=== PATIENT | female | born 1990 | race American Indian/Alaskan Native ===

== ENCOUNTER 2019-08-01 07:32 | Emergency (ER) | payer MEDICAID ==
[2019-08-01 08:04] VITALS: BP 112/81
[2019-08-01] MEDS ORDERED: ZOFRAN ODT PO ONE (08:45)
[2019-08-01 09:12] LABS: Basophils % (Auto) 0.5 % (0.0-1.8); Eosinophils # (Auto) 0.1 K/mm3 (0.0-0.4); Eosinophils % (Auto) 2.3 % (0.0-4.3); Hematocrit 35.1 % (30.3-42.9); Hemoglobin 11.4 gm/dl (10.1-14.3); Lymphocytes # (Auto) 1.9 K/mm3 (1.2-5.4); Lymphocytes % (Auto) 32.9 % (13.4-35.0); Mean Corpuscular HGB Conc 33 % (30-34); Mean Corpuscular Volume 77 fl (79-97); Monocytes # (Auto) 0.4 K/mm3 (0.0-0.8); Monocytes % (Auto) 7.7 % (0.0-7.3); Platelet Count 239 K/mm3 (140-440); Red Blood Count 4.55 M/mm3 (3.65-5.03); Red Cell Distribution Width 17.9 % (13.2-15.2)
--- NOTE | 2019-08-01 09:16 | Emergency Department Report ---
HPI - General Chief Complaint: Nausea/Vomiting/Diarrhea Time Seen by Provider: 08/01/19 08:34 - HPI HPI: 29-year-old -[place] female presents to the emergency department with a complaint of lower abdominal discomfort, nausea, vomiting and diarrhea. The patient says that she had a stomachache about one week ago that lasted for a few days and then resolved. Symptoms started last night but she had to go to work and she says that by this morning the symptoms had worsened. She has not taken anything for her symptoms prior to presentation. No recent travel or sick contacts at home. No past medical history. She has a primary care physician b ut cannot currently remember their name at this time. She denies any vaginal bleeding, discharge or dysuria. ED Past Medical Hx - Past Medical History Hx Hypertension: No Hx Heart Attack/AMI: No Hx Congestive Heart Failure: No Hx Diabetes: No Hx Deep Vein Thrombosis: No Hx Renal Disease: No Hx Sickle Cell Disease: No Hx Seizures: No Hx Asthma: No Hx COPD: No Hx HIV: No - Surgical History Past Surgical History?: No - Social History Smoking Status: Current Every Day Smoker Substance Use Type: None - Medications Home Medications: Home Medications Medication Instructions Recorded Confirmed Last Taken Type Ferrous Fumarate (Nf) 324 mg PO BID #60 tablet 11/23/14 Unknown Rx [Hemocyte(Nf)] Ibuprofen [Motrin 600 MG tab] 600 mg PO Q6H #30 tablet 11/23/14 Unknown Rx Ixi620/Iron Fum/Folic/Docusate 1 each PO QDAY #30 tablet 11/23/14 Unknown Rx [ 19 Tablet] Ondansetron [Zofran Odt] 4 mg PO Q8HR PRN #14 tab.rapdis 08/01/19 Unknown Rx ED Review of Systems ROS: Stated complaint: KUSH/STOMACH PAIN/VOMIT Other details as noted in HPI Comment: All other systems reviewed and negative Constitutional: denies: chills, fever Gastrointestinal: abdominal pain, nausea, vomiting, diarrhea Genitourinary: denies: dysuria, discharge Musculoskeletal: denies: back pain, myalgia Skin: denies: rash, lesions Neurological: denies: headache, weakness Physical Exam - Physical Exam Vital Signs: Vital Signs 08/01/19 08:02 Temperature 98.0 F Pulse Rate 70 Respiratory 20 Rate Blood Pressure 112/81 [Right] O2 Sat by Pulse 100 Oximetry Physical Exam: GENERAL: The patient is well-developed well-nourished. HENT: Normocephalic. Atraumatic. Patient has moist mucous membranes. EYES: Extraocular motions are intact. NECK: Supple. Trachea is midline. CHEST/LUNGS: Clear to auscultation. There is no respiratory distress noted. HEART/CARDIOVASCULAR: Regular. There is no tachycardia. There is no murmur. ABDOMEN: Abdomen is soft. Mild lower abdominal tenderness to palpation. No guarding. Patient has normal bowel sounds. There is no abdominal distention. SKIN: Skin is warm and dry. NEURO: The patient is awake, alert, and oriented. The patient is cooperative. The patient has no focal neurologic deficits. Normal speech. MUSCULOSKELETAL: There is no tenderness or deformity. There is no evidence of acute injury. ED Course Vital Signs 08/01/19 08:02 Temperature 98.0 F Pulse Rate 70 Respiratory 20 Rate Blood Pressure 112/81 [Right] O2 Sat by Pulse 100 Oximetry ED Medical Decision Making - Lab Data Result diagrams: 08/01/19 08:58 08/01/19 08:58 - Radiology Data Radiology results: image reviewed interpreted by me: Abdominal x-ray shows nonspecific nonobstructive bowel gas - Medical Decision Making Patient presents with some nausea, vomiting, diarrhea and lower abdominal discomfort since last night. Abdomen is soft, nondistended and nontoxic in appearance. Labs have been unremarkable including CBC, metabolic panel, urinalysis and the patient is not . Abdominal x-ray shows nonspecific n onobstructive bowel gas. She was given a Zofran ODT and upon reevaluation she is feeling greatly improved. She passed an oral challenge. She'll be discharged home to follow up with primary care and will return to the ER with any worsening of her symptoms or any acute distress. - Differential Diagnosis food poisoning, viral syndrome, colitis Critical Care Time: No Critical care attestation.: If time is entered above; I have spent that time in minutes in the direct care of this critically ill patient, excluding procedure time. ED Disposition Clinical Impression: Nausea and vomiting Qualifiers: Vomiting type: unspecified Vomiting Intractability: unspecified Qualified Code(s): R11.2 - Nausea with vomiting, unspecified Diarrhea Qualifiers: Diarrhea type: unspecified type Qualified Code(s): R19.7 - Diarrhea, unspecifie d Abdominal pain Qualifiers: Abdominal location: lower abdomen, unspecified Qualified Code(s): R10.30 - Lower abdominal pain, unspecified Disposition: TO HOME OR SELFCARE Is pt being admited?: No Condition: Stable Instructions: Acute Nausea and Vomiting (ED), Acute Diarrhea (ED), Viral Syndrome (ED), Abdominal Pain (ED) Additional Instructions: Please follow-up with a primary care physician in the next few days. Increase your oral rehydration. Return to the emergency Department with any worsening of your symptoms or any acute distress. Prescriptions: Ondansetron [Zofran Odt] 4 mg PO Q8HR PRN #14 tab.rapdis PRN Reason: Nausea Referrals: LUCAS SHEA MD [Staff Physician] - 2-3 Days [facility] [Outside] - 2-3 Days Forms: Work/School Release Form(ED) Time of Disposition: 11:17
[2019-08-01 09:28] LABS: Bacteria,Urine 1+ /HPF (Negative); Bilirubin,Urine NEG (Negative); Blood,Urine NEG (Negative); Color,Urine Straw (Yellow); Protein,Urine <15 mg/dL mg/dL (Negative); Urobilinogen,Urine < 2.0 mg/dL (<2.0)
[2019-08-01 09:35] LABS: Alanine Aminotransferase 9 units/L (7-56); Albumin 4.3 g/dL (3.9-5); BUN/Creatinine Ratio 9; Blood Urea Nitrogen 6 mg/dL (7-17); Hemolysis Index 5
[2019-08-01 09:37] LABS: Bilirubin,Direct < 0.2 mg/dL (0-0.2)
--- NOTE | 2019-08-01 10:46 | XRay Report ---
ABDOMEN 2 VIEW(S) INDICATION / CLINICAL INFORMATION: Abdominal pain. COMPARISON: None available. FINDINGS: TUBES / LINES: None. BOWEL GAS PATTERN: No significant abnormality. FREE AIR / EXTRALUMINAL GAS: None seen. ADDITIONAL FINDINGS: Cholecystectomy clips are noted in the right upper quadrant. External artifacts from the waist beads is noted. IMPRESSION: No significant abnormality. Signer Name: Adan Jacobson Jr, MD Signed: 08/01/2019 10:42 AM Workstation Name: [id number]
== END 2019-08-01 11:30 | disposition home or self-care (01) ==
LOC: ED 07:32
DX: R11.2 Nausea with vomiting, unspecified (principal); R19.7 Diarrhea, unspecified; R10.30 Lower abdominal pain, unspecified; F17.200 Nicotine dependence, unspecified, uncomplicated; Z79.899 Other long term (current) drug therapy
CPT/HCPCS: 36415; 74019; 80048; 80076; 81001; 84703; 85025; Q0162